=== PATIENT | male | born 1950 | race Caucasian/White ===

== ENCOUNTER → 2017-12-22 | Outpatient (CLI) | payer OTHER ==
--- NOTE | 2017-12-23 09:51 | MRI ---
EXAM DESCRIPTION: Cervical Spine: MRI. CLINICAL HISTORY: SPINAL STENOSIS IN CERVICAL REGION COMPARISON: MRI cervical spine 04/04/2015. TECHNIQUE: Multiplanar MRI, multiple sequences, non-contrast High-field. FINDINGS: Fusion construct at C5-6 anterior with anterior plate and bilateral vertebral body screws. No abnormal marrow edema or soft tissue mass. Minimal left neural foraminal narrowing. Posterior flavum ligament thickening. Moderate canal narrowing. Cord edema just below the disc space. C3-4: Disc desiccation and minimal posterior bulge. Minimal canal narrowing. Bilateral mild facet arthrosis. Bilateral moderate neural foraminal narrowing. C4-5: Minimal disc desiccation with disc space preserved. Right facet arthrosis and uncinate spur with moderate neural foraminal narrowing. Mild left neural foraminal narrowing. Canal is patent. C6-7: Disc desiccation and anterior bulging and endplate ridging. Posterior broad-based disc bulge 3 mm impressing on the cord. Left uncinate spur and minimal facet arthrosis with left neural foraminal stenosis. Mild right neural foraminal narrowing. Borderline canal stenosis. No cord edema. C7-T1: Disc space preserved. Right facet arthrosis and spur encroaching on the right foramen and the exiting right C8 nerve. Mild canal narrowing. Left neuroforamen is patent. Normal signal in the C2-3 and T1-T2 discs with no bulging. Disc spaces preserved. Canal and neural foramina are patent. Facets are unremarkable. No cord compression or cord edema. Spine is normally lordotic. Atlantoaxial joint is hypertrophied. Base of the cerebellar tonsils is above the foramen magnum. Paravertebral soft tissues negative. Vertebral bodies are not compressed at any level. Normal marrow signal in the remaining vertebral bodies and the posterior elements. IMPRESSION: 1. Stable fusion construct C5-6 with no significant neural foraminal stenosis. Stable since the prior study. Hypertrophy of the flavum ligaments impressing on the posterior cord. Narrowing of the canal. Cord edema is new since the prior study. 2. Posterior broad-based C6-7 disc bulge impressing on the cord. Borderline canal stenosis. Left neural foraminal stenosis. Correlate for left C7 radiculopathy. No cord edema. 3. No significant disc bulging at C7-T1. Right facet arthrosis and large spur encroaching on the right neural foramen and exiting right C8 nerve. New since the prior study. Electronically signed by: Mingo Gonzalez MD 12/23/2017 9:49 AM CDT
== END ==
LOC: MRI 08:59
PROVIDERS: ATTEND Family Medicine
DX: M48.02 Spinal stenosis, cervical region (principal); M50.223 Other cervical disc displacement at C6-C7 level

== ENCOUNTER → 2018-03-07 | Outpatient (CLI) | payer OTHER ==
--- NOTE | 2018-03-07 16:24 | MRI ---
EXAM DESCRIPTION: Lumbar Spine w/o Contrast CLINICAL HISTORY: 67 years Male, M51.36 COMPARISON: None available. TECHNIQUE: Multiplanar multiecho imaging of the lumbar spine was performed without intravenous contrast administration. FINDINGS: The normal lordotic curvature of the lumbar spine is well preserved. The vertebral body heights are well-maintained with no acute compression deformity. Multilevel intervertebral disc space narrowing is noted. The conus medullaris terminates at L1 vertebral body. The visualized spinal cord demonstrates no signal abnormality. L1-L2: Normal L2-L3: Mild bilateral neural foraminal narrowing is noted secondary to facet arthropathy. L3-L4: Diffuse disc bulge asymmetric to the left with resultant severe left lateral recess narrowing. Also, there is severe bilateral neural foraminal narrowing. L4-L5: Changes of laminectomy and posterior spinal fixation are identified. No significant canal stenosis. There is moderate bilateral neural foraminal narrowing. L5-S1: Moderate bilateral neural foraminal narrowing is noted secondary to facet arthropathy.Changes of laminectomy and posterior spinal fixation are identified. The visualized prevertebral and paravertebral soft tissues appear unremarkable. IMPRESSION: Changes of laminectomy and posterior spinal fixation are identified at L4-L5 and L5-S1 levels. Multilevel neural foraminal narrowing is noted throughout the lumbar spine, worse at L3-L4 level. Electronically signed by: Jessica Wood MD 03/07/2018 4:23 PM CDT
== END ==
LOC: MRI 12:51
PROVIDERS: ATTEND Family Medicine
DX: M51.36 Other intervertebral disc degeneration, lumbar region (principal)